=== PATIENT | male | born 1975 | race Caucasian/White ===

== ENCOUNTER 2018-02-13 08:57 | Emergency (ER) | payer MEDICAID ==
[2018-02-13] MEDS: predniSONE 20 MG TAB PO (09:37)
[2018-02-13] MEDS: IPRATROPIUM (NEB) 0.5 MG/2.5 ML AMP NEB (09:45)
[2018-02-13] MEDS: ALBUTEROL 0.083% (NEB) 2.5 MG/3 ML AMP NEB (09:45)
== END 2018-02-13 10:46 | disposition home or self-care (01) ==
LOC: FTE 08:57
DX: J45.901 Unspecified asthma with (acute) exacerbation (principal)
CPT/HCPCS: 71045; 94664; 99284-25